=== PATIENT | female | born 1970 | race Caucasian/White ===

== ENCOUNTER 2022-04-17 14:46 | Outpatient (CLI) | payer SELFPAY | END 2022-04-17 14:47 | disposition home or self-care (01) | LOC: RAD 14:48 | PROVIDERS: PCP Obstetrics & Gynecology; Visit Provider Family Medicine | DX: I51.7 Cardiomegaly (principal); I34.0 Nonrheumatic mitral (valve) insufficiency | CPT/HCPCS: 93306 ==